=== PATIENT | female | born 1975 | race Caucasian/White ===

== ENCOUNTER 2020-05-15 08:33 | Emergency (ER) | payer MEDICAID ==
[2020-05-15] MEDS ORDERED: DEXAMETHASONE SOD PHOS INJ 10 MG/1 ML VIAL IM ONE (08:51)
[2020-05-15] MEDS ORDERED: KETOROLAC TROMETHAMINE 60 MG/2 ML SDV IM ONE (08:51)
[2020-05-15] MEDS ORDERED: CYCLOBENZAPRINE HCL 10 MG TABLET PO ONE (08:53)
--- NOTE | 2020-05-15 08:57 | ER Document Report ---
HPI - HPI Time Seen by Provider: 05/15/20 08:47 Pain Level: 2 Notes: 45-year-old female patient presents emergency department chief complaint of low back pain. Patient reports pain started yesterday after having intercourse. She denies any dysuria, urinary frequency, fever, chills, nausea or vomiting. She believes that she strained a muscle. She denies ever having pain like this before. She denies any loss of control of bowel or bladder, denies any urinary retention or saddle anesthesia. She is otherwise healthy. She ambulated into the emergency department without difficulty. - ROS Systems Reviewed and Negative: Yes All other systems reviewed and negative - REPRODUCTIVE Reproductive: DENIES: : - MUSCULOSKELETAL Musculoskeletal: REPORTS: Back Pain Past Medical History - General Information source: Patient - Social History Smoking Status: Current Every Day Smoker Frequency of alcohol use: None Drug Abuse: None Family History: Reviewed & Not Pertinent Patient has homicidal ideation: No Pulmonary Medical History: Reports: Hx Asthma Past Surgical History: Reports: Hx Orthopedic Surgery - Immunizations Hx Diphtheria, Pertussis, Tetanus Vaccination: Yes Vertical Provider Document - CONSTITUTIONAL Notes: PHYSICAL EXAMINATION: GENERAL: Well-appearing, well-nourished and in no acute distress. HEAD: Atraumatic, normocephalic. EYES: Pupils equal round extraocular movements intact, conjunctiva are normal. ENT: Nares patent NECK: Normal range of motion LUNGS: No respiratory distress Abdomen: Abdomen soft, nontender. Musculoskeletal: Normal range of motion, tenderness in the left lumbar paraspinous region, no vertebral tenderness, step-off or deformity. : No CVA tenderness. NEUROLOGICAL: Normal speech, normal gait. PSYCH: Normal mood, normal affect. SKIN: Warm, Dry, normal turgor, no rashes or lesions noted. - INFECTION CONTROL TRAVEL OUTSIDE OF THE [place] IN LAST 30 DAYS: No Course - Re-evaluation Re-evalutation: Patient presenting with likely musculoskeletal strain. We will obtain a UA to ensure that there is no UTI. She has no red flag symptoms for cauda equina. We gave her Flexeril, Toradol and Decadron. If her symptoms improve and no UA she will be discharged home. - Vital Signs Vital signs: Temp Pulse Resp BP Pulse Ox 98.6 F 70 16 109/78 98 05/15/20 08:39 05/15/20 08:39 05/15/20 08:39 05/15/20 08:39 05/15/20 08:39 Discharge - Discharge Clinical Impression: Back pain Qualifiers: Back pain location: low back pain Chronicity: acute Back pain laterality: left Sciatica presence: with sciatica Sciatica laterality: sciatica of left side Qualified Code(s): M54.42 - Lumbago with sciatica, left side Condition: Stable Disposition: HOME, SELF-CARE Additional Instructions: You have been seen in the Emergency Department (ED) today for back pain. Your workup and exam have not shown any acute abnormalities and you are likely suffering from muscle strain or possible problems with your discs, but there is no treatment that will fix your symptoms at this time. Please take the medications that have been prescribed as directed. You should also purchase a l ocal lidocaine cream such as "aspercreme with lidocaine" and use per bottle instructions to the affected area. Apply heat to the area as often as you are able. Continue to keep active and avoid prolonged periods of bed rest. Please follow up with your doctor as soon as possible regarding today's ED visit and your back pain. Return to the ED for worsening back pain, fever, weakness or numbness of either leg, or if you develop either (1) an inability to urinate or have bowel movements, or (2) loss of your ability to control your bathroom functions (if you start having "accidents"), or if you develop other new symptoms that concern you.concern you. Prescriptions: Ketorolac Tromethamine [Toradol 10 mg Tablet] 10 mg PO Q6HP PRN #24 tablet PRN Reason: Cyclobenzaprine HCl [Flexeril 10 mg Tablet] 10 mg PO TIDP PRN #20 tab PRN Reason: Lidocaine [Lidoderm 5% (700 mg) Transdermal Patch] 1 patch TP DAILY #30 adh..patch Forms: Return to Work Referrals: MICHELLE LLANES I, DO [Primary Care Provider] - Follow up as needed
[2020-05-15 09:16] LABS: APPEARANCE,URINE CLEAR; BILIRUBIN,URINE NEGATIVE (NEGATIVE); COLOR,URINE YELLOW; GLUCOSE, URINE NEGATIVE (NEGATIVE); KETONES,URINE NEGATIVE (NEGATIVE); LEUKOCYTE ESTERASE,URINE NEGATIVE (NEGATIVE); NITRITE,URINE NEGATIVE (NEGATIVE); PROTEIN,URINE NEGATIVE (NEGATIVE); UROBILINOGEN,URINE NEGATIVE mg/dL (<2.0)
[2020-05-15 10:33] VITALS: BP 118/83
== END 2020-05-15 10:28 | disposition home or self-care (01) ==
LOC: ER 08:33
DX: M54.42 Lumbago with sciatica, left side (principal); F17.200 Nicotine dependence, unspecified, uncomplicated; J45.909 Unspecified asthma, uncomplicated
CPT/HCPCS: 99284; 96372; 87086; 81001; J3490; J1885; J1100